=== PATIENT | female | born 2000 | race Hispanic/Latino ===

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

== ENCOUNTER 2021-05-07 20:22 | Emergency (ER) | payer OTHER, BC | END 2021-05-07 22:15 | disposition left against medical advice (07) | LOC: ERS 20:22 | DX: Z53.21 Procedure and treatment not carried out due to patient leaving prior to being seen by health care provider (principal) ==

== ENCOUNTER 2021-07-10 12:35 | Emergency (ER) | payer OTHER ==
[2021-07-10] MEDS ORDERED: Acetaminophen 500 MG TAB ONE (14:49)
[2021-07-11 13:28] LABS: SARS-CoV-2 PCR by NAA DETECTED (NotDetected)
== END 2021-07-10 15:07 | disposition home or self-care (01) ==
LOC: ERS 12:35
DX: U07.1 COVID-19 (principal)
CPT/HCPCS: 87804; 99284; U0003; U0005

== ENCOUNTER 2021-08-16 18:23 | Emergency (ER) | payer OTHER, SELFPAY ==
[2021-08-16 19:15] LABS: #Eosinphils 0.1 thou/uL (0.0-0.7); #Lymphocytes 1.1 thou/uL (1.20-3.40); #Monocytes 0.6 thou/uL (0.11-0.59); #Neutrophils 9.1 thou/uL (1.40-6.50); %Basophils 0.1 % (0.0-1.0); %Eosinophils 1.4 % (0.0-10.0); %Lymphocytes 9.7 % (28.0-48.0); %Monocytes 5.7 % (0.0-4.0); %Neutrophils 83.2 % (31.0-61.0); Hemoglobin 13.6 g/dL (12.0-16.0); Mean Corpuscular HGB CONC 32.2 g/dL (32.0-36.0); Mean Corpuscular Hemoglobin 29.2 pg (25.0-35.0); Mean Corpuscular Volume 90.5 fL (78.0-98.0); Mean Platelet Volume 8.2 fL (7.4-10.4); Platelet Count 223 thou/uL (130-400); RBC Distribution Width 13.2 % (11.5-14.5); Red Blood Cell (RBC) Count 4.65 mill/uL (4.00-5.20); White Blood Cell (WBC) Count 10.9 thou/uL (4.8-10.8)
[2021-08-16 19:21] LABS: BHCG - Serum Negative (NEGATIVE); Pregs Control Background? CLEAR/WHITE (CLR/WHITE); Pregs Control Bar Appear? YES (CONTROL BAR)
[2021-08-16 19:27] LABS: ALT (SGPT) 18 U/L (8-55); AST (SGOT) 19 U/L (5-30); Albumin 4.3 g/dL (3.5-5.0); Alkaline Phosphatase 81 U/L (40-100); Anion Gap 13 mmol/L (10-20); BUN (Urea Nitrogen) 14 mg/dL (8.4-21.0); Bilirubin, Total 0.6 mg/dL (0.2-1.2); Calc. Creatinine Clearance 0 mL/min (70-130); Calcium 9.1 mg/dL (7.8-10.44); Carbon Dioxide 23 mmol/L (22-29); Chloride 105 mmol/L (98-107); Globulin 3.2 g/dL (2.4-3.5); Glucose 97 mg/dL (70-105); Lipase 21 U/L (8-78); Potassium 3.8 mmol/L (3.5-5.1); Protein, Total 7.5 g/dL (6.0-8.3); Sodium 137 mmol/L (136-145)
[2021-08-16] MEDS ORDERED: Ondansetron ODT 4 MG TAB ONE ×2 (21:17→22:58)
[2021-08-16] MEDS ORDERED: Dicyclomine 20 MG TAB ONE (21:17)
[2021-08-16 21:49] LABS: Bacteria/HPF None Seen HPF (None Seen); Bilirubin Negative (Negative); Blood, Urine Trace (Negative); Clarity Clear (Clear); Glucose, Urine (Dipstick) Normal (Negative); Ketone, Urine Negative (Negative); Leukocyte Negative Leu/uL (Negative); Nitrite Negative (Negative); Protein, Urine (Dipstick) Negative (Neg-Trace); RBC/HPF 0-3 HPF (0-3); Specific Gravity, Urine 1.031 (1.002-1.036); Squamous Epithelial 0-3 HPF (0-3); Urobilinogen Normal mg/dL (Less than 2); WBC/HPF 0-3 HPF (0-3); pH, Urine 5.5 (5.0-9.0)
[2021-08-16] MEDS ORDERED: Ondansetron PF 4 MG/2 ML Vial ONE (22:58)
== END 2021-08-16 22:58 | disposition home or self-care (01) ==
LOC: ERS 18:23
DX: R11.2 Nausea with vomiting, unspecified (principal); R19.7 Diarrhea, unspecified
CPT/HCPCS: 36415; 80053; 81003; 81015; 83690; 84703; 85025; 99284; J2405; Q0162

== ENCOUNTER 2022-03-05 08:21 | Emergency (ER) | payer BC, OTHER ==
[2022-03-05 11:00] LABS: Bilirubin Negative (Negative); Blood, Urine 3+ (Negative); Clarity Clear (Clear); Glucose, Urine (Dipstick) Normal (Negative); Ketone, Urine Trace mg/dL (Negative); Leukocyte 75 Leu/uL (Negative); Nitrite Negative (Negative); Protein, Urine (Dipstick) 20 mg/dL (Neg-Trace); Specific Gravity, Urine 1.026 (1.002-1.036); Squamous Epithelial 0-3 HPF (0-3)
[2022-03-05 11:03] LABS: Pregnancy Test - Urine (BHCG) Negative (Negative); Pregu Control Background? CLEAR/WHITE (CLR/WHITE); Pregu Control Bar Appear? YES (CONTROL BAR); Specific Gravity 1.026 (1.002-1.036)
[2022-03-05 11:04] LABS: Bacteria/HPF 1+ HPF (None Seen)
[2022-03-05] MEDS ORDERED: Acetaminophen 325 MG TAB ONE (11:26)
== END 2022-03-05 11:30 | disposition home or self-care (01) ==
LOC: ERS 08:21
DX: U07.1 COVID-19 (principal)
CPT/HCPCS: 81003; 81015; 81025; 99283; U0003; U0005

== ENCOUNTER 2022-06-07 09:59 | Emergency (ER) | payer BC, OTHER ==
[2022-06-07 10:37] LABS: #Eosinphils 0.1 thou/uL (0.0-0.7); #Lymphocytes 2.3 thou/uL (1.20-3.40); #Monocytes 0.6 thou/uL (0.11-0.59); #Neutrophils 4.4 thou/uL (1.40-6.50); %Basophils 0.2 % (0.0-1.0); %Eosinophils 1.3 % (0.0-10.0); %Lymphocytes 31.5 % (28.0-48.0); %Monocytes 7.7 % (0.0-4.0); %Neutrophils 59.3 % (31.0-61.0); Mean Corpuscular Hemoglobin 30.6 pg (25.0-35.0); Mean Corpuscular Volume 92.8 fl (78.0-98.0); Mean Platelet Volume 9.9 fL (7.4-10.4); Platelet Count 163 10x3/uL (130-400); RBC Distribution Width 12.4 % (11.5-14.5); Red Blood Cell (RBC) Count 4.56 mill/uL (4.00-5.20); White Blood Cell (WBC) Count 7.4 10x3/uL (4.8-10.8)
[2022-06-07 11:00] LABS: ALT (SGPT) 12 U/L (8-55); AST (SGOT) 15 U/L (5-34); Albumin 4.5 g/dL (3.5-5.0); Alkaline Phosphatase 65 U/L (40-100); Anion Gap 9 mmol/L (10-20); BUN (Urea Nitrogen) 16 mg/dL (7.0-18.7); Bilirubin, Total 0.6 mg/dL (0.2-1.2); Calc. Creatinine Clearance 0 mL/min (70-130); Calcium 9.2 mg/dL (7.8-10.44); Carbon Dioxide 25 mmol/L (22-29); Chloride 107 mmol/L (98-107); Estimated GFR 121; Globulin 2.7 g/dL (2.4-3.5); Glucose 87 mg/dL (70-105); Potassium 4.3 mmol/L (3.5-5.1); Protein, Total 7.2 g/dL (6.0-8.3); Sodium 137 mmol/L (136-145)
[2022-06-07] MEDS ORDERED: Ibuprofen 200 MG TAB ONE (11:22)
[2022-06-07] MEDS ORDERED: Acetaminophen 500 MG TAB ONE (11:22)
== END 2022-06-07 12:19 | disposition home or self-care (01) ==
LOC: ERS 09:59
DX: R07.9 Chest pain, unspecified (principal)
CPT/HCPCS: 36415; 71045; 80053; 84484; 85025; 93005; 94760

== ENCOUNTER 2022-06-12 14:15 | Outpatient (CLI) | payer BC | END 2022-06-12 14:16 | disposition home or self-care (01) | LOC: BICRAD 14:15 | PROVIDERS: ATTEND Nurse Practitioner Family | DX: M94.0 Chondrocostal junction syndrome [Tietze] (principal) | CPT/HCPCS: 71046 ==

== ENCOUNTER 2022-11-17 21:13 | Emergency (ER) | payer BC, OTHER ==
[2022-11-17 22:27] LABS: Bilirubin Negative (Negative); Blood, Urine Negative (Negative); Clarity Clear (Clear); Glucose, Urine (Dipstick) Normal (Negative); Ketone, Urine Negative (Negative); Leukocyte Negative Leu/uL (Negative); Nitrite Negative (Negative); Protein, Urine (Dipstick) Negative (Neg-Trace); Specific Gravity, Urine 1.016 (1.002-1.036); Urobilinogen Normal mg/dL (Less than 2)
[2022-11-17 22:29] LABS: Pregnancy Test - Urine (BHCG) Negative (Negative); Pregu Control Background? CLEAR/WHITE (CLR/WHITE); Pregu Control Bar Appear? YES (CONTROL BAR); Specific Gravity 1.016 (1.002-1.036)
[2022-11-17 22:34] LABS: ALT (SGPT) 17 U/L (8-55); AST (SGOT) 21 U/L (5-34); Albumin 4.3 g/dL (3.5-5.0); Alkaline Phosphatase 71 U/L (40-110); Anion Gap 11 mmol/L (10-20); BUN (Urea Nitrogen) 12 mg/dL (7.0-18.7); Bilirubin, Total 0.5 mg/dL (0.2-1.2); Calc. Creatinine Clearance 0 mL/min (70-130); Calcium 8.9 mg/dL (7.8-10.44); Carbon Dioxide 24 mmol/L (22-29); Chloride 106 mmol/L (98-107); Estimated GFR 109; Glucose 94 mg/dL (70-105); Lipase 31 U/L (8-78); Potassium 3.7 mmol/L (3.5-5.1); Protein, Total 7.3 g/dL (6.0-8.3); Sodium 137 mmol/L (136-145)
[2022-11-18] MEDS ORDERED: Naproxen 500 MG TAB ONE (02:21)
[2022-11-18 02:38] LABS: BHCG - Serum Negative (NEGATIVE); Pregs Control Background? CLEAR/WHITE (CLR/WHITE); Pregs Control Bar Appear? YES (CONTROL BAR)
== END 2022-11-18 03:29 | disposition home or self-care (01) ==
LOC: ERS 21:13
DX: R10.811 Right upper quadrant abdominal tenderness (principal)
CPT/HCPCS: 36415; 74176; 80053; 81003; 81025; 83690; 84703